=== PATIENT | female | born 1995 | race Caucasian/White ===

== ENCOUNTER 2020-12-14 22:54 | Emergency (ER) | payer MEDICAID ==
[~2020-12-14] VITALS: Ht 157.5 cm; Wt 61.0 kg
[2020-12-15] MEDS ORDERED: NALO4SPR BOTHNSTRLS (01:49)
[2020-12-15 03:14] VITALS: BP 116/72
== END 2020-12-15 03:16 | disposition home or self-care (01) ==
LOC: ER 22:54
DX: T40.1X1A Poisoning by heroin, accidental (unintentional), initial encounter (principal); R41.82 Altered mental status, unspecified; F17.210 Nicotine dependence, cigarettes, uncomplicated; F12.10 Cannabis abuse, uncomplicated; F15.10 Other stimulant abuse, uncomplicated; Y92.59 Other trade areas as the place of occurrence of the external cause
CPT/HCPCS: 93005; 99283